=== PATIENT | female | born 1985 | race Caucasian/White ===

== ENCOUNTER 2022-02-07 18:33 | Emergency (ER) | payer OTHER, SELFPAY ==
--- NOTE | 2022-02-07 18:37 | ED.BACK ---
HPI - Back Pain/Injury General Chief Complaint: Back Pain/Injury Stated Complaint: pain lower back running to sides Time Seen by Provider: 02/07/22 18:37 Source: patient, family and RN notes reviewed History of Present Illness HPI Narrative: Patient is a 36-year-old female who presents the urgent care with complaints of left lower abdominal pain, low back pain, abdominal cramping and body aches. Patient states that the back pain is now radiating to the left side. Patient states that they were camping this weekend and it all started on Saturday. Patient did recently start her menstrual cycle but states that she never has the symptoms with her cycle . Patient did take a test which was negative. Patient is not on any type of control. States that she has been on ibuprofen and Midol and using a heating pad. Denies of any fevers or vomiting. Denies of any ill exposures. Patient states that she did see her PCP earlier today and he was more concerned with her being overweight than he was with her current back pain and abdominal issues. Patient states that he did not feel the need to order any outpatient testing. No other acute complaints. no acute distress noted. Patient aware of the plan of care. Some parts of this dictation were generated by voice recognition software and may contain typographical and/or grammatical inaccuracies. Related Data Home Medications Medication Instructions Recorded Confirmed escitalopram oxalate 20 mg tablet 1 tablet PO DAILY 02/07/22 02/07/22 norethindrone 1 mg-ethinyl 1 tablet PO DAILY 02/07/22 02/07/22 estradiol 20 mcg (24)-iron 75 mg (4) tablet (Blisovi 24 Fe) pravastatin 20 mg tablet 20 tablet PO DAILY 02/07/22 02/07/22 topiramate 50 mg tablet 50 tablet PO BID 02/07/22 02/07/22 Allergies Allergy/AdvReac Type Severity Reaction Status Date / Time No Known Allergies Allergy Verified 02/07/22 18:48 Review of Systems Review of Systems: CONSTITUTIONAL: Denies fever, chills, or sweats. EYES: Denies visual changes, redness, or discharge. ENT: Denies rhinorrhea, congestion, sore throat, or otalgia. CARDIOVASCULAR: Denies chest pain, palpitations, or edema. RESPIRATORY: Denies cough or dyspnea. GASTROINTESTINAL: Reports of left lower abdominal pain, abdominal cramping, intermittent nausea GENITOURINARY: Denies dysuria or hematuria. SKIN: Denies rash or itching. MUSCULOSKELETAL: Low back pain NEUROLOGIC: Denies headache, numbness, or weakness. All other systems reviewed are negative, except as documented in HPI. PMFSH Comments At the time of my signature, I reviewed and agree with the nursing past medical, surgical, social, and family history. There is no relevant family history pertinent to the patient complaint. Exam Narrative: GENERAL: This is a well-nourished, well-developed patient, in no apparent distress. HEAD: normocephalic, atraumatic. EYES: PERRL. Sclera clear/white. Vision is grossly intact. EARS: External ears normal NOSE: External nose normal with no obvious nasal discharge, nares without redness, no rhinorrhea. THROAT: Mucous membranes moist NECK: Neck supple CARDIOVASCULAR: Regular rate and rhythm without murmurs, gallops, or rubs. RESPIRATORY: Clear to auscultation. Breath sounds equal bilaterally. No wheezes, rales, or rhonchi. GASTROINTESTINAL: Abdomen soft, mild lower abdominal tenderness more located to the left lower nondistended. Bowel sounds are active. No guarding. SKIN: warm, intact with no suspicious lesions or rash, good texture and turgor. NEURO: awake, alert, and oriented to person, place and time. There were no obvious focal neurologic abnormalities. EXTREMITIES: No clubbing, cyanosis, or edema. BACK: Negative bilateral CVA tenderness Course Course Level of Care: Express Care Visit Vital Signs Vital signs: Vital Signs Temperature 99 F 02/07/22 18:41 Pulse Rate 68 02/07/22 18:41 Respiratory Rate 16 02/07/22 18:41 Blood Pressure
[2022-02-07 18:41] VITALS: BP 115/76; PULSE 68; RESP 16; TEMP 37.2; O2SAT 100
== END 2022-02-07 19:15 | disposition home or self-care (01) ==
PROVIDERS: Emergency Provider Nurse Practitioner Family; PCP Internal Medicine
DX: M54.50 Low back pain, unspecified (principal); R10.32 Left lower quadrant pain; E78.00 Pure hypercholesterolemia, unspecified; F41.9 Anxiety disorder, unspecified; F32.A Depression, unspecified
CPT/HCPCS: 81003; 99212; G0463

== ENCOUNTER 2022-02-07 19:44 | Emergency (ER) | payer OTHER, SELFPAY ==
[2022-02-07] VITALS (7 sets, daily range): BP systolic 106–122; BP diastolic 64–79; PULSE 65–68; RESP 18; TEMP 36.4; O2SAT 97–100
--- NOTE | ~2022-02-07 | CT_ITS ---
EXAMINATION: CT abdomen pelvis w con DATE: 02/07/2022 23:50 INDICATION: Low abdominal pain. TECHNIQUE: Computed tomography (CT) of the abdomen and pelvis was performed with 75 mL Omnipaque 300 intravenous contrast. Automated exposure control and iterative reconstruction technique were employed . The dose-length product was 713.26 mGy-cm. COMPARISON: Pelvis ultrasound 02/08/2022 FINDINGS: The visualized portions of the lung bases demonstrate mild atelectasis. No pleural effusion . The heart size is normal. No pericardial effusion. The liver, gallbladder, spleen, pancreas, adrena l glands, and kidneys are normal. There are no dilated loops of bowel. The appendix is normal. There is a 14 mm dominant follicle in left ovary. There are no pathologically enlarged lymph nodes. There i s no free intraperitoneal fluid. There is mild thoracolumbar spondylosis. IMPRESSION: 1. No etiology for the patient's symptoms. Reviewed, dictated and finalized at location A.
--- NOTE | ~2022-02-07 | US_ITS ---
EXAMINATION: US pelvic complete w TV DATE: 02/08/2022 02:03 INDICATION: Left pelvic pain. TECHNIQUE: Multiple transabdominal and transvaginal sonographic images of the pelvis were obtained. COMPARISON: CT abdomen and pelvis 02/07/2022 FINDINGS: TRANSABDOMINAL ULTRASOUND: The uterus measures 10.0 x 5.4 x 5.0 cm. There is no free fluid in the pelvis. TRANSVAGINAL ULTRASOUND: The endometrial complex measures 8 mm in thickness. The right ovary measures 2.7 x 1.7 x 2.7 cm. The left ovary measures 2.6 x 2.3 x 2.0 cm. There is a 10 mm dominant follicle in left ovary. There is no rmal vascular flow in the ovaries. IMPRESSION: 1. Normal pelvis. Reviewed, dictated and finalized at location A. IMPRESSION: 1. Normal pelvis.
[2022-02-07 20:32] LABS: Basophils Percent Auto 0.4 % (0.2-1.2); Eosinophils Absolute Auto 0.1 K/mm3 (0-0.3); Eosinophils Percent Auto 0.6 % (0-4.4); Hematocrit 38.1 % (37.0-47.0); Hemoglobin 12.2 g/dL (12.0-15.0); Immature Granulocyte Absolute 0.03 K/mm3 (0.00-0.031); Immature Granulocyte Percent A 0.3 % (0-0.5); Lymphocytes Absolute Auto 3.03 K/mm3 (0.9-3.2); Lymphocytes Percent Auto 28.1 % (18.3-44.2); Mean Corpuscular Hemoglobin 26.7 pg (26-34); Mean Corpuscular Volume 83.4 fl (80-100); Mean Platelet Volume 10.5 fl (7.4-10.4); Monocytes Absolute Auto 0.5 K/mm3 (0.1-0.6); Monocytes Percent Auto 4.3 % (2.6-8.5); Neutrophils Absolute Auto 7.2 K/mm3 (1.3-6.7); Neutrophils Percent Auto 66.3 % (45.5-73.1); Platelet Count Result 324 k/mm3 (150-375); Red Blood Count 4.57 M/mm3 (4.2-5.4); Red Cell Distribution Width 13.8 % (11.5-14.5); White Blood Count 10.8 K/mm3 (4.5-10.0)
[2022-02-07 20:33] LABS: Appearance Urine Clear (Clear); Bilirubin Urine Negative (Negative); Blood Urine 2+ (Negative); Color Urine Yellow (Yellow); Glucose Urine UA Negative (Negative); Ketones Urine Negative (Negative); Leukocyte Esterase Ur Negative LEU/UL (Negative); Nitrate Urine Negative (Negative); Protein Urine Negative (Negative); Specific Grav Ur 1.025 (1.001-1.035); Urobilinogen Urine 0.2 mg/dL (<2.0); pH Urine 5.5 (5.0-9.0)
[2022-02-07 20:41] LABS: Alanine Aminotransferase 12 U/L (6-35); Alkaline Phosphatase 71 U/L (38-126); Anion Gap 8 mmol/L (8-16); Aspartate Amino Transferase 24 U/L (14-36); Bilirubin,Total 0.2 mg/dL (0.2-1.3); Blood Urea Nitrogen 13 mg/dL (7-17); Calcium 9.2 mg/dL (8.4-10.2); Carbon Dioxide 24 mmol/L (22-30); Chloride 105 mmol/L (98-107); Estimated CRCL calculation 92 ml/min; Estimated Glomerular Filt Rate > 60; Glucose 93 mg/dL (65-110); Lipase 100 U/L (23-300); Mucus Urine Rare /lpf; Potassium 3.7 mmol/L (3.4-5.0); RBC Urine 0-2 /hpf (0-2); Sodium 137 mmol/L (137-145); Squamous Epithelial Cell Urine Occasional /hpf (Few); WBC Urine 0-3 /hpf
[2022-02-07 20:43] LABS: Add Urine Microscopic? YES
--- NOTE | 2022-02-07 23:32 | ED.ABDPAIN ---
HPI - Abdominal Pain General Chief Complaint: Abdominal Pain Stated Complaint: Low back pain, abd pain. sent by Time Seen by Provider: 02/07/22 22:36 Source: patient Mode of arrival: ambulatory Limitations: no limitations History of Present Illness HPI narrative: This is a 36 year old female that presents to the ER for low abdominal pain. Present over the last couple of days. Associated with some low back cramping and nausea. Was seen at Urgent care and sent here for further evaluation. Denies fever, vomiting, dysuria, or diarrhea. Related Data Home Medications Medication Instructions Recorded Confirmed escitalopram oxalate 20 mg tablet 1 tablet PO DAILY 02/07/22 02/07/22 norethindrone 1 mg-ethinyl 1 tablet PO DAILY 02/07/22 02/07/22 estradiol 20 mcg (24)-iron 75 mg (4) tablet (Blisovi 24 Fe) pravastatin 20 mg tablet 20 tablet PO DAILY 02/07/22 02/07/22 topiramate 50 mg tablet 50 tablet PO BID 02/07/22 02/07/22 Allergies Allergy/AdvReac Type Severity Reaction Status Date / Time No Known Allergies Allergy Verified 02/07/22 18:48 Review of Systems Review of Systems: CONSTITUTIONAL: Denies fever GASTROINTESTINAL: Reports abdominal pain, nausea. Denies vomiting, or diarrhea. GENITOURINARY: Denies dysuria or hematuria. All systems reviewed & are unremarkable except as noted in HPI and below PMFSH Past Medical History Medical History (Updated 02/08/22 @ 02:40 by Kaleigh Osullivan PA-C) History of hyperlipidemia Social History Social History (Updated 02/07/22 @ 23:37 by Kaleigh Osullivan PA-C) Substance use: never Exam Narrative: GENERAL: Well-appearing, well-nourished, and in no acute distress. HEAD: Normocephalic, atraumatic. EYES: EOMI. CHEST: Clear to auscultation. No respiratory distress. No wheezes rales or rhonchi HEART: Regular rate and rhythm. No murmur heard. Normal peripheral pulses. ABDOMEN: Soft, nondistended, normal active bowel sounds. Tender to palpation throughout the lower abdomen, without guarding. No CVA tenderness EXTREMITIES: Normal range of motion. No edema. SKIN: Warm, dry, no rash. NEURO: No focal deficits. Alert and oriented x3. PSYCH: Normal mood and affect Course Vital Signs Vital signs: Vital Signs Temperature 97.6 F 02/07/22 20:07 Pulse Rate 68 02/07/22 20:07 Respiratory Rate 18 02/07/22 20:07 Blood Pressure 117/70 02/07/22 20:07 Pulse Oximetry 100 02/07/22 20:07 Oxygen Delivery Room Air 02/07/22 20:07 Temperature 97.6 F 02/07/22 20:07 Pulse Rate 64 02/08/22 01:01 Respiratory Rate 18 02/08/22 01:01 Blood Pressure 129/79 02/08/22 01:01 Pulse Oximetry 99 02/08/22 01:01 Oxygen Delivery Room Air 02/07/22 22:46 MDM - Abdominal Pain MDM Narrative Medical decision making narrative: Patient presents to the emergency department for low back pain and left-sided abdominal pain present over the last couple of days. She is afebrile and nontoxic-appearing. Her vitals are stable. CBC and metabolic panel without concerning findings. UA without evidence of infection. Bedside test is negative. CT scan of the abdomen and pelvis without acute findings. Shows a left ovarian cyst. Pelvic ultrasound without concerning findings. Patient was updated on case findings. She is stable and felt appropriate for further outpatient evaluation. She is to follow-up with her security strategist. She was given warnings to return to the ER Lab Data Attestation: I reviewed the patient's lab results. Result diagrams: 02/07/22 20:24 02/07/22 20:24 Labs: Lab Results 02/07/22 02/07/22 02/07/22 Range/Units 20:24 20:24 20:24 WBC 10.8 H (4.5-10.0) K/mm3 RBC 4.57 (4.2-5.4) M/mm3 Hgb 12.2 (12.0-15.0) g/dL Hct 38.1 (37.0-47.0) % MCV 83.4 (80-100) fl MCH 26.7 (26-34) pg MCHC 32.0 (32-36) g/dl RDW 13.8 (11.5-14.5) % Plt Count 324 (150-375) k/mm3 MPV 10.5 H (7.4-
[2022-02-07] MEDS: SODIUM CHLORIDE 0.9% IV 1,000 ML 999 ML IV CONT (23:51)
[2022-02-07] MEDS: ONDANSETRON INJ 4 MG/2 ML VIAL IV PUSH (23:51)
[2022-02-08 00:06] VITALS: O2SAT 100
[2022-02-08 00:16] VITALS: BP 107/69; O2SAT 99
[2022-02-08 00:31] VITALS: BP 111/61; PULSE 68; RESP 18; O2SAT 99
[2022-02-08 01:01] VITALS: BP 129/79; PULSE 64; RESP 18; O2SAT 99
[2022-02-08 02:48] VITALS: BP 117/75; PULSE 76; RESP 18; O2SAT 100
== END 2022-02-08 02:50 | disposition home or self-care (01) ==
PROVIDERS: Emergency Provider Emergency Medicine; PCP Internal Medicine
DX: R10.32 Left lower quadrant pain (principal); E78.5 Hyperlipidemia, unspecified
CPT/HCPCS: 36415; 74177; 76830; 76856; 80053; 81001; 81025; 83690; 85025; 96361; 96365; 96375; 99284; J0131; J2405; J7030; Q9967